=== PATIENT | female | born 1975 | race African-American/Black ===

== ENCOUNTER 2022-03-18 13:50 | Emergency (ER) | payer OTHER ==
[~2022-03-18] VITALS: Ht 182.9 cm; Wt 106.6 kg
[2022-03-18] MEDS ORDERED: CRUTCH4 XX (15:43)
== END 2022-03-18 16:32 | disposition home or self-care (01) ==
LOC: ER 13:50
DX: S93.401A Sprain of unspecified ligament of right ankle, initial encounter (principal); S93.601A Unspecified sprain of right foot, initial encounter; M70.41 Prepatellar bursitis, right knee; Z91.041 Radiographic dye allergy status; X50.1XXA Overexertion from prolonged static or awkward postures, initial encounter
CPT/HCPCS: 73630; A9270